=== PATIENT | male | born 1975 | race Two or more races ===

== ENCOUNTER 2023-10-24 12:49 | Emergency (ER) | payer BC, SELFPAY ==
[2023-10-24 12:54] VITALS: BP 158/97
--- NOTE | 2023-10-24 14:49 | ED.GENMED ---
History of Present Illness
General
Chief Complaint: Musculo-Skeletal Complaint
Source: patient
Exam Limitations: none
Time Seen by Provider: 10/24/23 13:49
Nursing documentation reviewed up to this point in time: agreed with
History of Present Illness
History of Present Illness:
48-year-old male presenting to the emergency department today with concerns of left-sided shoulder discomfort over the past few days seem to be after a flight where he was very cramped and had assume a very cramped position. Then lifted some heavy
luggage. Did not feel any emergent symptoms at the time but symptoms the next day. Has significant discomfort with any movement of the shoulder. Denies any fevers redness or warmth or any systemic symptoms. Denies chest pain shortness of breath
nausea vomiting.
Review of Systems
Review of Systems
Allergies reviewed?: Yes
All Other Systems: ROS reviewed and negative except as documented in HPI and ROS
Phy Exam
Physical Exam
Physical Exam:
GENERAL: Alert , in no apparent distress
EYE: pupils equal and reactive
NECK: Supple, no significant adenopathy.
ENT: o/p clr, mmm.
CARDIAC: Regular rate and rhythm .
LUNGS: Clear breath sounds bilaterally, no acute respiratory distress, no wheezes/rales/rhonchi
ABDOMEN: Soft, without focal tenderness, no r/g, no cvat
NEUROLOGICAL: Alert and oriented, no focal neuro deficits
SKIN: Warm and dry, skin intact.
MUSCULOSKELETAL: Made worse with abduction motion posteriorly or any overhead movement. Discomfort with passive range of motion. No edema, well perfused.
PSYCH: Normal and appropriate interaction.
Discomfort throughout the shoulder and deltoid region
Course
Orders/Labs/Results
Orders:
Orders
10/24/23 12:57
Shoulder, Left, Trauma CR [CR Shoulder, Trauma - Left] Urgent
Comment:
Reason For Exam: pain
Vital Signs
Initial and Last Documented VS:
Initial Vital Signs
Temp Pulse Resp BP Pulse Ox
98.4 F 97 18 158/97 98
10/24/23 12:54 10/24/23 12:54 10/24/23 12:54 10/24/23 12:54 10/24/23 12:54
Last Documented Vital Signs
Temp Pulse Resp BP Pulse Ox
98.4 F 97 18 158/97 98
10/24/23 12:54 10/24/23 12:54 10/24/23 12:54 10/24/23 12:54 10/24/23 12:54
MDM/Problems Addressed
MDM/Problems Addressed:
40-year-old male presenting to the emergency department today with concerns of left shoulder pain over the past few days. Seem to occur after flight and awkward positioning pain specifically made worse with movement and palpation of the dull
region. No overlying redness swelling or warmth no send systemic symptoms normal vital signs. X-ray performed without emergent findings. Patient with likely soft tissue injury does not appear to be referred discomfort considering very
reproducible to palpation and movement. No evidence of septic arthritis. Patient advised for close orthopedic follow-up. Return precautions given.
*Critical Care Note
Total Time (30-74mins, 75-104mins- exclusive of procedures): Not Applicable
ED Attending Note
-
Portions of this chart may have been created with voice recognition software.� Occasional wrong word or��sound alike� substitutions may have occurred due to the inherent limitations of voice recognition software.
Discharge Plan
Departure
Patient Disposition: Home (Routine Discharge)
Date of Disposition: 10/24/23
Time of Disposition: 14:52
Patient with high blood pressure during this ER visit?: No
Condition: Good
Covid-19: Not Applicable
Discharge Problem:
Left shoulder strain
Instructions: Sprain (DC)
Prescriptions:
New
oxycodone-acetaminophen [Percocet] 5-325 mg tablet
1 tab PO Q8H PRN (Reason: Pain) Qty: 7 0RF
Referrals:
Barney Roy CRNP [Family Provider] -
Cooper Cyr MD [Active] - Follow up in 5-7 days
Activity Restrictions/Additional Instructions:
You came to the emergency department today with concerns of shoulder discomfort. Please help closely with the orthopedic doctor for further assessment. Return to the emergency department for any worsening, new or concerning symptoms.
Interventions
Interventions:
*Risk Screen - Suicide Last Done: 10/24/23 12:54
*General Assessment Last Done: 10/24/23 12:54
*Neglect/Abuse Screening Last Done: 10/24/23 12:54
ED-Musculoskeletal Assessment Last Done: 10/24/23 13:34
Discharge Date and Time
Print Language: ROMANIAN
== END 2023-10-24 15:15 | disposition home or self-care (01) ==
LOC: EMR 12:49
PROVIDERS: EMERGENCY PHYSICIAN Emergency Medicine; FAMILY PHYSICIAN Nurse Practitioner Gerontology
DX: S46.912A Strain of unspecified muscle, fascia and tendon at shoulder and upper arm level, left arm, initial encounter (principal); X50.1XXA Overexertion from prolonged static or awkward postures, initial encounter; Z88.0 Allergy status to penicillin
CPT/HCPCS: 99283; 73030